=== PATIENT | female | born 1995 | race Caucasian/White ===

== ENCOUNTER 2017-12-28 19:51 | Emergency (ER) | payer SELFPAY ==
[~2017-12-28] VITALS: Ht 167.6 cm; Wt 78.5 kg
[2017-12-28 20:02] VITALS: BP 134/63
[2017-12-28 20:24] LABS: BILIRUBIN,URINE NEGATIVE (NEG); CLARITY,URINE CLEAR; COLOR,URINE YELLOW; NITRITE,URINE NEGATIVE (NEG); PROTEIN,URINE NEGATIVE (NEG-TRACE); UROBILINOGEN,URINE 0.2 mg/dL (0.2 mg/dL)
--- NOTE | 2017-12-28 20:27 | PHYS DOC ---
Past Medical History Past Medical History: Hypertension, UTI Alcohol Use: None Drug Use: None Adult General Chief Complaint Chief Complaint: PAIN ON URINATION HPI HPI Patient is a 22 year old female with chief complaint of lower abdominal pain. She's had this for 2 days it is cramping bilateral right greater than left lower quadrant associated with some back discomfort is increased when she tries to walk she also has had urinary urgency and some dysuria no fever did vomit twice she does have vaginal discharge she would also like to be checked for STDs. Symptoms are moderate they're worsening with time in addition she felt some presyncopal symptoms when she was walking up the stairs the other day she felt like she was going to pass out but she did not do so Review of Systems Review of Systems Constitutional: Denies fever or chills [] Eyes: Denies change in visual acuity, redness, or eye pain [] HENT: Denies nasal congestion or sore throat [] Respiratory: Denies cough or shortness of breath [] Musculoskeletal: Integument: Denies rash or skin lesions [] Neurologic: Denies headache, focal weakness or sensory changes [] Endocrine: Denies polyuria or polydipsia [] All other systems were reviewed and found to be within normal limits, except as documented in this note. Current Medications Current Medications Current Medications Medications (Trade) Dose Ordered Sig/Lorrie Start Time Stop Time Status Last Admin Dose Admin Azithromycin (Zithromax) 1,000 mg 1X ONCE 12/28/17 22:15 12/28/17 22:16 DC 12/28/17 22:23 1,000 MG Ceftriaxone Sodium 1 gm/ Sodium Chloride 50 ml @ 100 mls/hr 1X ONCE 12/28/17 22:30 12/28/17 22:59 DC Ceftriaxone Sodium (Rocephin Im) 1 gm 1X ONCE 12/28/17 22:45 12/28/17 22:49 DC 12/28/17 22:23 1 GM Ketorolac Tromethamine (Toradol 15mg Vial) 15 mg 1X ONCE 12/28/17 20:30 12/28/17 20:31 DC 12/28/17 20:32 15 MG Sodium Chloride 1,000 ml @ 1,000 mls/hr 1X ONCE 12/28/17 20:30 12/28/17 21:29 DC 12/28/17 20:32 1,000 MLS/HR Allergies Allergies Allergies Coded Allergies Type Severity Reaction Last Updated Verified No Known Drug Allergies 12/28/17 No Physical Exam Physical Exam Constitutional: Well developed, well nourished, no acute distress, non-toxic appearance. [] HENT: Normocephalic, atraumatic, bilateral external ears normal, oropharynx moist, no oral exudates, nose normal. [] Eyes: PERRLA, EOMI, conjunctiva normal, no discharge. [] Neck: Normal range of motion, no tenderness, supple, no stridor. [] Pulmonary: Normal respiratory effort no increased work of breathing no obvious chest wall trauma Abdomen: Bowel sounds normal, soft, rlq and llq tenderness, no masses, no pulsatile masses. [] gu; there is mild vaginal d/c neg for cmt or adnexal ttp performed by mary who relayed msg to me of the fidnings. Skin: Warm, dry, no erythema, no rash. [] Extremities: No tenderness, no cyanosis, no clubbing, ROM intact, no edema. [] Neurologic: Alert and oriented X 3, normal motor function, normal sensory function, no focal deficits noted. [] Psychologic: Affect normal, judgement normal, mood normal. [] Current Patient Data Vital Signs Vital Signs Date Time Temp Pulse Resp B/P (MAP) Pulse Ox O2 Delivery O2 Flow Rate FiO2 12/28/17 20:02 98.8 88 18 134/63 (86) 94 Room Air 98.8 Lab Values Laboratory Tests Test 12/28/17 19:55 12/28/17 20:02 12/28/17 20:23 Urine Collection Type Void Urine Color Yellow Urine Clarity Clear Urine pH 7.0 Urine Specific [place] 1.020 Urine Protein Negative mg/dL (NEG-TRACE) Urine Glucose (UA) Negative mg/dL (NEG) Urine Ketones (Stick) Negative mg/dL (NEG) Urine Blood Trace (NEG) Urine Nitrite Negative (NEG) Urine Bilirubin Negative (NEG) Urine Urobilinogen Dipstick 0.2 mg/dL (0.2 mg/dL) Urine Leukocyte Esterase Negative (NEG) Urine RBC Occ /HPF (0-2) Urine WBC 0 /HPF (0-4) Urine Squamous Epithelial Cells Mod /LPF Urine Bacteria Few /HPF (0-FEW) Urine Mucus Mod /LPF POC Urine HCG, Qualitative Hcg negative (Negative) White Blood Count 4.5 x10^3/uL (4.0-11.0) Red Blood Count 4.45 x10^6/uL (3.50-5.40) Hemoglobin 14.2 g/dL (12.0-15.5) Hematocrit 40.5 % (36.0-47.0) Mean Corpuscular Volume 91 fL (79-100) Mean Corpuscular Hemoglobin 32 pg (25-35) Mean Corpuscular Hemoglobin Concent 35 g/dL (31-37) Red Cell Distribution Width 13.9 % (11.5-14.5) Platelet Count 173 x10^3/uL (140-400) Neutrophils (%) (Auto) 48 % (31-73) Lymphocytes (%) (Auto) 43 % (24-48) Monocytes (%) (Auto) 7 % (0-9) Eosinophils (%) (Auto) 1 % (0-3) Basophils (%) (Auto) 1 % (0-3) Neutrophils # (Auto) 2.2 x10^3uL (1.8-7.7) Lymphocytes # (Auto) 2.0 x10^3/uL (1.0-4.8) Monocytes # (Auto) 0.3 x10^3/uL (0.0-1.1) Eosinophils # (Auto) 0.0 x10^3/uL (0.0-0.7) Basophils # (Auto) 0.0 x10^3/uL (0.0-0.2) Sodium Level 144 mmol/L (136-145) Potassium Level 3.9 mmol/L (3.5-5.1) Chloride Level 108 mmol/L (98-107) H Carbon Dioxide Level 26 mmol/L (21-32) Anion Gap 10 (6-14) Blood Urea Nitrogen 12 mg/dL (7-20) Creatinine 0.9 mg/dL (0.6-1.0) Estimated GFR (Cockcroft-Gault) 79.0 BUN/Creatinine Ratio 13 (6-20) Glucose Level 94 mg/dL (70-99) Calcium Level 8.8 mg/dL (8.5-10.1) Total Bilirubin 0.3 mg/dL (0.2-1.0) Aspartate Amino Transferase (AST) 16 U/L (15-37) Alanine Aminotransferase (ALT) 21 U/L (14-59) Alkaline Phosphatase 69 U/L (46-116) Total Protein 7.1 g/dL (6.4-8.2) Albumin 3.9 g/dL (3.4-5.0) Albumin/Globulin Ratio 1.2 (1.0-1.7) Laboratory Tests 12/28/17 20:23 Laboratory Tests 12/28/17 20:23 Microbiology 12/28/17 Wet Prep - Final, Complete EKG EKG [] Radiology/Procedures Radiology/Procedures [] Impressions: FINDINGS: The uterus is anteverted and anteflexed in position. The longitudinal and AP and transverse dimensions are 5.7 cm and 3.5 cm and 4.3 cm respectively. The endometrial canal measures 4.3 mm in thickness. An IUD is seen within the central aspect of the endometrial canal consistent with proper positioning. No uterine mass or fibroid is seen. No free fluid is seen within the cul-de-sac. The right ovary measures 2.0 cm and 2.9 cm and 2.0 cm in size and is normal. Color Doppler flow is seen within the right ovary. The left ovary measures 2.4 cm and 3.8 cm and 1.7 cm in size and is normal. Color Doppler flow is seen within the left ovary. No adnexal mass is seen. IMPRESSION: Unremarkable pelvic sonogram. Electronically signed by: Delgado Gaines MD (12/28/2017 9:11 PM) [id number] DICTATED and SIGNED BY: DELGADO GAINES MD DATE: 12/28/172108 Course & Med Decision Making Course & Med Decision Making Pertinent Labs and Imaging studies reviewed. (See chart for details) 22 yo f with cc of lower ap and vaginal d/c bv noted ctx/azithro give for presumptive tx no evidence of pid. Dragon Disclaimer Dragon Disclaimer This electronic medical record was generated, in whole or in part, using a voice recognition dictation system. Departure Departure Disposition: 01 HOME, SELF-CARE Condition: STABLE Scripts Metronidazole (FLAGYL) 500 Mg Tablet 1 TAB PO BID for bacterial vaginosis, #14 TAB Prov: NONI ELLIS APRN 12/28/17 LUIS SOLORIO MD Dec 28, 2017 20:27
[2017-12-28] MEDS ORDERED: IV NORMAL SALINE 1000ML BAG 1,000 ML IV ONE (20:30)
[2017-12-28] MEDS ORDERED: KETOROLAC 15 MG/ML VIAL. IV ONE (20:30)
[2017-12-28 20:31] LABS: BACTERIA,URINE FEW /HPF (0-FEW); RBC,URINE OCC /HPF (0-2); SQUAMOUS EPITHELIAL CELL,UR MOD /LPF; WBC,URINE 0 /HPF (0-4)
[2017-12-28 20:33] LABS: BASO % 1 % (0-3); EOS % 1 % (0-3); HEMATOCRIT 40.5 % (36.0-47.0); HEMOGLOBIN 14.2 g/dL (12.0-15.5); LYMPH % 43 % (24-48); MEAN CORPUSCULAR HEMOGLOBIN 32 pg (25-35); MEAN CORPUSCULAR HGB CONC 35 g/dL (31-37); MEAN CORPUSCULAR VOLUME 91 fL (79-100); MONO # 0.3 x10^3/uL (0.0-1.1); MONO % 7 % (0-9); NEUT # 2.2 x10^3uL (1.8-7.7); NEUT % 48 % (31-73); PLATELET COUNT 173 x10^3/uL (140-400); RED BLOOD COUNT 4.45 x10^6/uL (3.50-5.40); RED CELL DISTRIBUTION WIDTH 13.9 % (11.5-14.5); WHITE BLOOD COUNT 4.5 x10^3/uL (4.0-11.0)
[2017-12-28 20:42] LABS: CALCIUM 8.8 mg/dL (8.5-10.1); CREATININE 0.9 mg/dL (0.6-1.0); POTASSIUM 3.9 mmol/L (3.5-5.1)
[2017-12-28 20:48] LABS: ALBUMIN 3.9 g/dL (3.4-5.0); ALBUMIN/GLOBULIN RATIO 1.2 (1.0-1.7); TOTAL BILIRUBIN 0.3 mg/dL (0.2-1.0); TOTAL PROTEIN 7.1 g/dL (6.4-8.2)
--- NOTE | 2017-12-28 21:15 | RAD ---
Transabdominal sonography of the pelvis Clinical indications: Right lower quadrant pain. FINDINGS: The uterus is anteverted and anteflexed in position. The longitudinal and AP and transverse dimensions are 5.7 cm and 3.5 cm and 4.3 cm respectively. The endometrial canal measures 4.3 mm in thickness. An IUD is seen within the central aspect of the endometrial canal consistent with proper positioning. No uterine mass or fibroid is seen. No free fluid is seen within the cul-de-sac. The right ovary measures 2.0 cm and 2.9 cm and 2.0 cm in size and is normal. Color Doppler flow is seen within the right ovary. The left ovary measures 2.4 cm and 3.8 cm and 1.7 cm in size and is normal. Color Doppler flow is seen within the left ovary. No adnexal mass is seen. IMPRESSION: Unremarkable pelvic sonogram. Electronically signed by: Walker Gaines MD (12/28/2017 9:11 PM) [facility]
[2017-12-28] MEDS ORDERED: METR500T PO (22:13)
[2017-12-28] MEDS ORDERED: AZITHROMYCIN 250 MG TABLET. PO ONE (22:15)
[2017-12-28] MEDS ORDERED: cefTRIAXone IM 1 GM VIAL IM ONE ×2 (22:17→22:45)
[2017-12-30 15:27] LABS: GC PROBE Negative (Negative)
== END 2017-12-28 22:30 | disposition home or self-care (01) ==
LOC: ER 19:51
DX: R10.31 Right lower quadrant pain (principal); R10.32 Left lower quadrant pain; R39.15 Urgency of urination; R30.0 Dysuria; R11.10 Vomiting, unspecified; N89.8 Other specified noninflammatory disorders of vagina; R55 Syncope and collapse; I10 Essential (primary) hypertension; Z87.440 Personal history of urinary (tract) infections
CPT/HCPCS: 36415; 76856; 80053; 81001; 81025; 85025; 87491; 87591; 96361; 96372; 96374; 99285; J0696; J1885; J7030; Q0111; Q0144